=== PATIENT | male | born 1940 | race Caucasian/White ===

== ENCOUNTER 2018-11-02 22:41 | Emergency (ER) | payer BC, MEDICARE, SELFPAY ==
[~2018-11-02] VITALS: Ht 175.3 cm; Wt 97.7 kg
[2018-11-02 22:41] VITALS: BP 148/71
[2018-11-02] MEDS ORDERED: CARV12.5 PO (22:51)
[2018-11-02] MEDS ORDERED: ALPR0.25 PO (22:51)
[2018-11-02] MEDS ORDERED: PLAV1TAB2 PO (22:51)
[2018-11-02] MEDS ORDERED: FLOM0.4C39 PO (22:51)
[2018-11-02] MEDS ORDERED: PANT40TA3 PO (22:51)
[2018-11-02] MEDS ORDERED: ELIQ5TAB PO (22:51)
[2018-11-02] MEDS ORDERED: TRAD5TAB PO (22:51)
[2018-11-02] MEDS ORDERED: CRES20TA2 PO (22:51)
[2018-11-02] MEDS ORDERED: ROCA0.25 PO (22:51)
[2018-11-02] MEDS ORDERED: METH25TAB PO (22:51)
[2018-11-02] MEDS ORDERED: CORL1.7T PO (22:51)
== END 2018-11-02 23:52 | disposition left against medical advice (07) ==
LOC: M ED 22:41
DX: S91.112A Laceration without foreign body of left great toe without damage to nail, initial encounter (principal); X58.XXXA Exposure to other specified factors, initial encounter; Y92.9 Unspecified place or not applicable; Y93.9 Activity, unspecified; Y99.9 Unspecified external cause status; Z79.01 Long term (current) use of anticoagulants; Z53.21 Procedure and treatment not carried out due to patient leaving prior to being seen by health care provider